=== PATIENT | male | born 1975 | race American Indian/Alaskan Native ===

== ENCOUNTER 2017-03-06 23:13 | Emergency (ER) | payer OTHER ==
[2017-03-06 23:50] VITALS: BP 133/72
[2017-03-07] MEDS ORDERED: TYLENOL #3 PO ONE ×2 (02:34→03:35)
--- NOTE | 2017-03-07 02:34 | Emergency Department Report ---
ED ENT HPI - General Chief complaint: Dental/Oral Stated complaint: LOWER L SIDE JAW PAIN Time Seen by Provider: 03/07/17 02:30 Source: patient Mode of arrival: Ambulatory Limitations: No Limitations - History of Present Illness Initial comments: 41-year-old male past medical history multiple dental cavities presents with complaint of left lower toothache and swelling. Denies fevers or chills. Speaking in full sentences no visible trismus or drooling. States he has made an appointment to see a dentist this week. MD complaint: tooth pain Onset/Timin -: week(s) Location: tooth # 1 - Dental tenderness and swelling Severity scale (0 -10): 6 Quality: aching Consistency: constant Improves with: none Worsens with: none Associated Symptoms: gum swelling, toothache - Related Data Previous Rx's Medication Instructions Recorded Last Taken Type Acetaminophen/Codeine 1 tab PO Q6H PRN #20 tab 05/05/14 Unknown Rx [Acetaminophen-Codeine #3 TAB] Clindamycin [Clindamycin Oral] 450 mg PO QID #28 capsule 05/05/14 Unknown Rx Acetaminophen/Codeine [Tylenol 1 tab PO Q6H PRN #18 tab 03/07/17 Unknown Rx /Codeine # 3 tab] Benzocaine [Orajel Liquid 20%] 1 ml MM Q6HR PRN #1 bottle 03/07/17 Unknown Rx Chlorhexidine Mouthwash [Peridex] 15 ml MM BID #1 bottle 03/07/17 Unknown Rx Clindamycin [Clindamycin CAP] 300 mg PO Q6H #28 capsule 03/07/17 Unknown Rx Ibuprofen [Motrin] 800 mg PO Q8HR PRN #30 tablet 03/07/17 Unknown Rx Allergies Allergy/AdvReac Type Severity Reaction Status Date / Time No Known Allergies Allergy Unverified 05/05/14 19:53 ED Dental HPI - General Chief complaint: Dental/Oral Stated complaint: LOWER L SIDE JAW PAIN Time Seen by Provider: 03/07/17 02:30 Source: patient Mode of arrival: Ambulatory Limitations: No Limitations - Related Data Previous Rx's Medication Instructions Recorded Last Taken Type Acetaminophen/Codeine 1 tab PO Q6H PRN #20 tab 05/05/14 Unknown Rx [Acetaminophen-Codeine #3 TAB] Clindamycin [Clindamycin Oral] 450 mg PO QID #28 capsule 05/05/14 Unknown Rx Acetaminophen/Codeine [Tylenol 1 tab PO Q6H PRN #18 tab 03/07/17 Unknown Rx /Codeine # 3 tab] Benzocaine [Orajel Liquid 20%] 1 ml MM Q6HR PRN #1 bottle 03/07/17 Unknown Rx Chlorhexidine Mouthwash [Peridex] 15 ml MM BID #1 bottle 03/07/17 Unknown Rx Clindamycin [Clindamycin CAP] 300 mg PO Q6H #28 capsule 03/07/17 Unknown Rx Ibuprofen [Motrin] 800 mg PO Q8HR PRN #30 tablet 03/07/17 Unknown Rx Allergies Allergy/AdvReac Type Severity Reaction Status Date / Time No Known Allergies Allergy Unverified 05/05/14 19:53 ED Review of Systems ROS: Stated complaint: LOWER L SIDE JAW PAIN Other details as noted in HPI Constitutional: denies: chills, fever Eyes: denies: eye pain, eye discharge, vision change ENT: dental pain. denies: ear pain, throat pain Respiratory: denies: cough, shortness of breath, wheezing Cardiovascular: denies: chest pain, palpitations Endocrine: no symptoms reported Gastrointestinal: denies: abdominal pain, nausea, diarrhea Genitourinary: denies: urgency, dysuria Musculoskeletal: denies: back pain, joint swelling, arthralgia Skin: denies: rash, lesions Neurological: denies: headache, weakness, paresthesias Psychiatric: denies: anxiety, depression Hematological/Lymphatic: denies: easy bleeding, easy bruising ED Past Medical Hx - Past Medical History Previous Medical History?: No - Surgical History Past Surgical History?: No - Social History Smoking Status: Current Every Day Smoker Substance Use Type: None - Medications Home Medications: Home Medications Medication Instructions Recorded Confirmed Last Taken Type Acetaminophen/Codeine 1 tab PO Q6H PRN #20 tab 05/05/14 Unknown Rx [Acetaminophen-Codeine #3 TAB] Clindamycin [Clindamycin Oral] 450 mg PO QID #28 capsule 05/05/14 Unknown Rx Acetaminophen/Codeine [Tylenol 1 tab PO Q6H PRN #18 tab 03/07/17 Unknown Rx /Codeine # 3 tab] Benzocaine [Orajel Liquid 20%] 1 ml MM Q6HR PRN #1 bottle 03/07/17 Unknown Rx Chlorhexidine Mouthwash [Peridex] 15 ml MM BID #1 bottle 03/07/17 Unknown Rx Clindamycin [Clindamycin CAP] 300 mg PO Q6H #28 capsule 03/07/17 Unknown Rx Ibuprofen [Motrin] 800 mg PO Q8HR PRN #30 tablet 03/07/17 Unknown Rx ED Physical Exam - General Limitations: No Limitations General appearance: alert, in no apparent distress - Head Head exam: Present: atraumatic, normocephalic - Eye Eye exam: Present: normal appearance, PERRL, EOMI - ENT ENT exam: Present: mucous membranes moist - Expanded ENT Exam Expanded Teeth exam: Present: dental caries, dental tenderness #, gingival enlargement 1 - Dental Tenderness (dental abscess and swelling here) - Neck Neck exam: Present: normal inspection - Respiratory Respiratory exam: Present: normal lung sounds bilaterally. Absent: respiratory distress - Cardiovascular Cardiovascular Exam: Present: regular rate, normal rhythm. Absent: systolic murmur, diastolic murmur, rubs, gallop - GI/Abdominal GI/Abdominal exam: Present: soft, normal bowel sounds - Rectal Rectal exam: Present: deferred - Extremities Exam Extremities exam: Present: normal inspection - Back Exam Back exam: Present: normal inspection - Neurological Exam Neurological exam: Present: alert, oriented X3, CN II-XII intact, normal gait - Psychiatric Psychiatric exam: Present: normal affect, normal mood - Skin Skin exam: Present: warm, dry, intact, normal color. Absent: rash ED Course Vital Signs 03/06/17 03/07/17 23:47 01:00 Temperature 99.5 F 99.5 F Pulse Rate 106 H 97 H Respiratory 20 97 H Rate Blood Pressure 133/72 133/72 O2 Sat by Pulse 97 100 Oximetry ED Medical Decision Making - Medical Decision Making A/P: dental cavities, toothache, dental abscess 1- Motrin when necessary, amoxicillin ten-day course, Orajel when necessary, Peridex mouthwash daily basis, short course codeine when necessary 2- I provided patient with information for multiple dental clinics to follow up and stressed the importance of dental follow-up as he has multiple cavities that require dental fixation or instrumentation 3- no clinical signs of facial abscess, no Landry's angina, no induration or cellulitis of floor of mouth or tongue 4- patient able to tolerate by mouth before discharge 5- no signs of facial infection. Advised patient that if he does not take antibiotics with follow-up with a dentist as soon as possible that a can result in potentially serious or dangerous infection to develop in jaw or face. Patient states that he understood these instructions. I advised patient to return to the ED for any persistent unrelenting nausea or vomiting fever or chills or headaches. Critical care attestation.: If time is entered above; I have spent that time in minutes in the direct care of this critically ill patient, excluding procedure time. ED Disposition Clinical Impression: Toothache, Dental cavities Disposition: TO HOME OR SELFCARE Is pt being admited?: No Does the pt Need Aspirin: No Condition: Stable Instructions: Dental Caries (ED), Toothache (ED) Prescriptions: Acetaminophen/Codeine [Tylenol /Codeine # 3 tab] 1 tab PO Q6H PRN #18 tab PRN Reason: Pain Benzocaine [Orajel Liquid 20%] 1 ml MM Q6HR PRN #1 bottle PRN Reason: Toothache Chlorhexidine Mouthwash [Peridex] 15 ml MM BID #1 bottle Clindamycin [Clindamycin CAP] 300 mg PO Q6H #28 capsule Ibuprofen [Motrin] 800 mg PO Q8HR PRN #30 tablet PRN Reason: Pain Referrals: [facility] [Outside] - 3-5 Days Time of Disposition: 02:32
[2017-03-07] MEDS ORDERED: CLEOCIN PO ONE (03:35)
== END 2017-03-07 02:31 | disposition home or self-care (01) ==
LOC: ED 23:13
DX: K02.9 Dental caries, unspecified (principal); F17.200 Nicotine dependence, unspecified, uncomplicated
CPT/HCPCS: 99282

== ENCOUNTER 2019-06-21 20:37 | Emergency (ER) | payer SELFPAY ==
[2019-06-21] MEDS ORDERED: ONDANSETRON 4 MG/2 ML INJ IV ONE (21:12)
--- NOTE | 2019-06-21 21:12 | Event Note ---
ED Screening Note Date of service: 06/21/19 Time: 21:10 ED Screening Note: 43 y/o male comes in for N/V/D since yesterday. No fever gas pain. This initial assessment/diagnostic orders/clinical plan/treatment(s) is/are subject to change based on patients health status, clinical progression and re- assessment by fellow clinical providers in the ED. Further treatment and workup at subsequent clinical providers discretion. Patient/guardian urged not to elope from the ED as their condition may be serious if not clinically assessed and managed. Initial orders include:
[2019-06-21] MEDS ORDERED: ONDANSETRON 4 MG ODT TAB PO ONE (21:15)
[2019-06-21] MEDS ORDERED: ONDANSETRON 4 MG ODT TAB ONE (21:16)
[2019-06-21 21:49] LABS: Bilirubin,Urine NEG (Negative); Blood,Urine NEG (Negative); Color,Urine Yellow (Yellow); Protein,Urine <15 mg/dL mg/dL (Negative); WBC,Urine < 1.0 /HPF (0.0-6.0)
--- NOTE | 2019-06-22 00:45 | Emergency Department Report ---
ED N/V/D HPI - General Chief complaint: Nausea/Vomiting/Diarrhea Stated complaint: NAUSEA, DIARRHEA, COUGH, AND BACK PAIN Time Seen by Provider: 06/21/19 21:10 Source: patient Mode of arrival: Ambulatory Limitations: No Limitations - History of Present Illness Initial comments: 43-year-old -[place] male patient without significant past medical h istory presents with complaints of nausea, vomiting, and diarrhea x yesterday. He denies any hematemesis/coffee-ground emesis, hematochezia/melena, abdominal pain, fever, or urinary symptoms. He also denies any recent antibiotic use, cough, congestion, or sneezing. He reports his son had similar symptoms a few days ago. MD complaint: nausea, vomiting, diarrhea -: Sudden Description of Vomiting: watery Pain Scale: 0 - Related Data Previous Rx's Medication Instructions Recorded Last Taken Type Acetaminophen/Codeine 1 tab PO Q6H PRN #20 tab 05/05/14 Unknown Rx [Acetaminophen-Codeine #3 TAB] Clindamycin [Clindamycin Oral] 450 mg PO QID #28 capsule 05/05/14 Unknown Rx Acetaminophen/Codeine [Tylenol 1 tab PO Q6H PRN #18 tab 03/07/17 Unknown Rx /Codeine # 3 tab] Benzocaine [Orajel Liquid 20%] 1 ml MM Q6HR PRN #1 bottle 03/07/17 Unknown Rx Chlorhexidine Mouthwash [Peridex] 15 ml MM BID #1 bottle 03/07/17 Unknown Rx Clindamycin [Clindamycin CAP] 300 mg PO Q6H #28 capsule 03/07/17 Unknown Rx Ibuprofen [Motrin] 800 mg PO Q8HR PRN #30 tablet 03/07/17 Unknown Rx Loperamide [Imodium] 2 mg PO Q2HR 2 Days #8 capsule 06/22/19 Unknown Rx Ondansetron [Zofran Odt] 4 mg PO Q8HR PRN #15 tab.rapdis 06/22/19 Unknown Rx Allergies Allergy/AdvReac Type Severity Reaction Status Date / Time No Known Allergies Allergy Verified 06/21/19 20:40 ED Review of Systems ROS: Stated complaint: NAUSEA, DIARRHEA, COUGH, AND BACK PAIN Other details as noted in HPI Constitutional: denies: chills, diaphoresis, fever, malaise, weakness ENT: denies: throat pain, congestion Respiratory: denies: cough, shortness of breath Gastrointestinal: nausea, vomiting, diarrhea. denies: abdominal pain, hematemesis, melena, hematochezia Genitourinary: denies: dysuria, frequency, hematuria, discharge Skin: denies: rash, lesions Hematological/Lymphatic: denies: swollen glands ED Past Medical Hx - Past Medical History Previous Medical History?: No - Surgical History Past Surgical History?: No - Social History Smoking Status: Current Every Day Smoker Substance Use Type: Marijuana - Medications Home Medications: Home Medications Medication Instructions Recorded Confirmed Last Taken Type Acetaminophen/Codeine 1 tab PO Q6H PRN #20 tab 05/05/14 Unknown Rx [Acetaminophen-Codeine #3 TAB] Clindamycin [Clindamycin Oral] 450 mg PO QID #28 capsule 05/05/14 Unknown Rx Acetaminophen/Codeine [Tylenol 1 tab PO Q6H PRN #18 tab 03/07/17 Unknown Rx /Codeine # 3 tab] Benzocaine [Orajel Liquid 20%] 1 ml MM Q6HR PRN #1 bottle 03/07/17 Unknown Rx Chlorhexidine Mouthwash [Peridex] 15 ml MM BID #1 bottle 03/07/17 Unknown Rx Clindamycin [Clindamycin CAP] 300 mg PO Q6H #28 capsule 03/07/17 Unknown Rx Ibuprofen [Motrin] 800 mg PO Q8HR PRN #30 tablet 03/07/17 Unknown Rx Loperamide [Imodium] 2 mg PO Q2HR 2 Days #8 capsule 06/22/19 Unknown Rx Ondansetron [Zofran Odt] 4 mg PO Q8HR PRN #15 tab.rapdis 06/22/19 Unknown Rx ED Physical Exam - General Limitations: No Limitations General appearance: alert, in no apparent distress - Head Head exam: Present: atraumatic, normocephalic - Eye Eye exam: Present: normal appearance. Absent: scleral icterus - ENT ENT exam: Present: mucous membranes moist - Neck Neck exam: Present: normal inspection - Respiratory Respiratory exam: Present: normal lung sounds bilaterally. Absent: respiratory distress - Cardiovascular Cardiovascular Exam: Present: regular rate, normal rhythm. Absent: systolic murmur, diastolic murmur, rubs, gallop - GI/Abdominal GI/Abdominal exam: Present: soft, hyperactive bowel sounds (mild). Absent: distended, tenderness, guarding, rebound, rigid, organomegaly, mass - Extremities Exam Extremities exam: Present: normal inspection - Back Exam Back exam: Present: normal inspection - Neurological Exam Neurological exam: Present: alert, oriented X3 - Psychiatric Psychiatric exam: Present: normal affect, normal mood - Skin Skin exam: Present: warm, dry, intact, normal color. Absent: rash, cyanosis, diaphoretic ED Course Vital Signs 06/21/19 20:43 Temperature 99.6 F Pulse Rate 98 H Respiratory 18 Rate Blood Pressure 151/91 O2 Sat by Pulse 98 Oximetry ED Medical Decision Making - Medical Decision Making Patient here with nausea vomiting and diarrhea since yesterday. He reports his son had similar symptoms a few days ago that have now resolved. He denies any red flag symptoms. Patient given Zofran here in ED and is now tolerating fluids and food orally. Symptoms are likely due to a viral gastroenteritis. His vitals are normal and he is stable for discharge home. Prescription for Zofran and Imodium given. Recommend follow-up with primary care provider in 3 to 5 days. Strict return precautions were discussed in great detail with patient who verbalizes understanding. Critical care attestation.: If time is entered above; I have spent that time in minutes in the direct care of this critically ill patient, excluding procedure time. ED Disposition Clinical Impression: Viral gastroenteritis Disposition: DC-01 TO HOME OR SELFCARE Is pt being admited?: No Condition: Stable Instructions: Gastroenteritis (ED) Prescriptions: Loperamide [Imodium] 2 mg PO Q2HR 2 Days #8 capsule Ondansetron [Zofran Odt] 4 mg PO Q8HR PRN #15 tab.rapdis PRN Reason: Nausea Referrals: PRIMARY CARE, [Primary Care Provider] - 3-5 Days Forms: Work/School Release Form(ED)
[2019-06-22 00:48] VITALS: BP 122/82
== END 2019-06-22 01:05 | disposition home or self-care (01) ==
LOC: ED 20:37
DX: K21.9 Gastro-esophageal reflux disease without esophagitis (principal)
CPT/HCPCS: 81001; 99283; Q0162